=== PATIENT | male | born 1945 | race Hispanic/Latino ===

== ENCOUNTER 2019-01-26 13:57 | Day surgery (SDC) | payer BC, MEDICARE ==
[2019-01-26] MEDS ORDERED: ZOFRAN IV PRN (15:49)
[2019-01-26] MEDS ORDERED: SUBLIMAZE IV PRN (15:49)
--- NOTE | 2019-01-26 15:50 | Anesthesia Day of Surgery ---
Anesthesia Day of Surgery - Day of Surgery Patient Examined: Yes Patient H&P Reviewed: Yes Patient is NPO: Yes
--- NOTE | 2019-01-26 15:55 | Anesthesia Consultation ---
Anesthesia Consult and Med Hx Date of service: 01/26/19 - Airway Anesthetic Teeth Evaluation: Dentures, Edentulous ROM Head & Neck: Adequate Mental/Hyoid Distance: Adequate Mallampati Class: Class II Intubation Access Assessment: Probably Good - Pre-Operative Health Status ASA Pre-Surgery Classification: ASA3, Emergency Proposed Anesthetic Plan: General - Pulmonary Hx Sleep Apnea: Yes (Probable per ) - Cardiovascular System Hx Hypertension: No (Can climb two flights of stairs) - Central Nervous System Hx Psychiatric Problems: Yes - Gastrointestinal Hx Gastroesophageal Reflux Disease: Yes (Well controlled) - Additional Comments Anesthesia Medical History Comments: [id number] BREAKFAST
[2019-01-26] MEDS ORDERED: LACTATED RINGERS 1,000 ML IV SCH (16:00)
[2019-01-26] MEDS ORDERED: ANCEF/STERILE WATER 2 GM/20 ML IV NR (16:02)
[2019-01-26] MEDS ORDERED: XYLOCAINE MPF 2% ONE (16:03)
[2019-01-26] MEDS ORDERED: SUBLIMAZE ONE (16:03)
[2019-01-26] MEDS ORDERED: DIPRIVAN 10 MG/ML IV ONE (16:04)
[2019-01-26] MEDS ORDERED: DECADRON ONE (16:42)
[2019-01-26] MEDS ORDERED: ZOFRAN ONE (16:42)
--- NOTE | 2019-01-26 16:50 | Post Operative Note ---
Date of procedure: 01/26/19 Pre-op diagnosis: left ureteral stone Post-op diagnosis: same Findings: same Procedure: in situ L eswl Anesthesia: KATLYN Surgeon: AIDA WAGNER Estimated blood loss: none Pathology: none Condition: stable Disposition: PACU
--- NOTE | 2019-01-26 16:51 | Discharge Summary ---
Short Stay Discharge Plan Activity: other (no straining ) Weight Bearing Status: Full Weight Bearing Diet: low fat, low cholesterol, low salt Special Instructions: other (inc fluids ) Durable Medical Equipment Needed Upon Discharge: other (j stent ) Follow up with: SENG KNOWLES [Other] - 7 Days AIDA WAGNER MD [Staff Physician] - 7 Days
--- NOTE | 2019-01-26 17:39 | Operative Report ---
PREOPERATIVE DIAGNOSES: Left mid ureteral stone. POSTOPERATIVE DIAGNOSIS: Left mid ureteral stone. PROCEDURE: In situ lithotripsy. SURGEON: Dr. Zapien. ANESTHESIA: General. FINDINGS: This is a gentleman with a mid ureteral stone. He had intermittent pain, nothing severe and when I met him for the first time in the holding area we discussed stenting and need for further treatment. He now presents for treatment. DESCRIPTION OF PROCEDURE: The patient was brought to the operating room and placed on the operating table. Following the induction of anesthesia, the stone was easily localized mid left ureter. Shocks were begun at 1 kV and increased to maximum of 9 kV. This was well below the kidney. The patient tolerated the procedure well. There was a less density of the stone as to very solid stone based on the initial radiographic. The family was explained that he may need followup ureteroscopy, stenting percutaneous procedures or repeat lithotripsy. We gave him 3000 shocks. He was brought to recovery in stable condition. JOB# [id number] HARRIET/RAND
[2019-01-26 21:44] VITALS: BP 125/68
== END 2019-01-26 18:45 | disposition home or self-care (01) ==
LOC: OR 13:57
PROVIDERS: ATTEND Urology
DX: N13.2 Hydronephrosis with renal and ureteral calculous obstruction (principal); N40.1 Benign prostatic hyperplasia with lower urinary tract symptoms; Z79.899 Other long term (current) drug therapy; G47.30 Sleep apnea, unspecified; K21.9 Gastro-esophageal reflux disease without esophagitis
CPT/HCPCS: 50590; J1100; J2405; J2704; J3010; J7120